=== PATIENT | female | born 1965 | race African-American/Black ===

== ENCOUNTER 2020-04-24 11:02 | Inpatient (IN) ==
[2020-04-24] MEDS ORDERED: SODIUM CHLORIDE 0.9% 1,000 ML IV STA (11:28)
[2020-04-24 11:55] LABS: Basophils % 0.2 % (0.0-0.8); Eosinophils % 0.3 % (0.00-10.9); Hematocrit 40.9 VOL% (35.7-47.0); Hemoglobin 13.7 GM/DL (12.0-16.0); Immature Granulocytes % 0.4 %; Immature Granulocytes Absolute 0.06 #; Lymphocytes # 2.2 10*3/uL (1.4-4.0); Lymphocytes % 16.1 % (21.3-54.2); Mean Corpuscular HGB Conc 33.5 GM/DL (32-36); Mean Corpuscular Volume 86.5 FL (87-102); Mean Platelet Volume 10.1 FL (9.6-12.0); Platelet Count 279 T/CUMM (130-400); Red Blood Count 4.73 MC/CUMM (3.8-5.5); White Blood Count 13.5 T/CUMM (4-12)
[2020-04-24 12:17] LABS: Calcium 9.5 MG/DL (8.5-10.1)
[2020-04-24] MEDS ORDERED: cefTRIAXone 1,000 MG in SODIUM CHLORIDE 0.9% 100 ML IV STA (12:46)
[2020-04-24 12:47] LABS: Ferritin 867.3 ng/ml (8-252)
[2020-04-24] MEDS ORDERED: GLUCAGON 1 MG VIAL IM PRN (15:40)
[2020-04-24] MEDS ORDERED: ACETAMINOPHEN 325 MG TABLET PO PRN (15:40)
[2020-04-24] MEDS ORDERED: ONDANSETRON 4 MG/2 ML VIAL IV PRN (15:40)
[2020-04-24] MEDS ORDERED: DEXTROSE 50% 25 GM/50 ML VIAL IV PRN (15:40)
[2020-04-24] MEDS ORDERED: DEXAMETHASONE 10 MG/1 ML VIAL IV ONE (16:25)
[2020-04-24] MEDS: AZITHROMYCIN INJ 500 MG in SODIUM CHLORIDE 0.9% 250 ML IV SCH (17:00)
[2020-04-24] MEDS: ENOXAPARIN 40 MG/0.4 ML SYRINGE SUBCUT SCH (21:45)
[2020-04-25 06:38] LABS: Basophils % 0.2 % (0.0-0.8); Hematocrit 40.4 VOL% (35.7-47.0); Hemoglobin 13.3 GM/DL (12.0-16.0); Immature Granulocytes % 0.7 %; Immature Granulocytes Absolute 0.04 #; Lymphocytes # 0.9 10*3/uL (1.4-4.0); Lymphocytes % 15.4 % (21.3-54.2); Mean Corpuscular HGB Conc 32.9 GM/DL (32-36); Mean Corpuscular Volume 89.2 FL (87-102); Mean Platelet Volume 10.8 FL (9.6-12.0); Monocytes % 2.6 % (1.7-12.7); Neutrophils % 81.1 % (38.7-73.9); Platelet Count 263 T/CUMM (130-400); Red Blood Count 4.53 MC/CUMM (3.8-5.5); Red Cell Distribution Width 11.9 % (9.3-17.3); White Blood Count 5.8 T/CUMM (4-12)
[2020-04-25 07:02] LABS: Albumin 2.3 G/DL (3.4-5.0); Bilirubin,Total 1.1 MG/DL (0.2-1.0); Calcium 9.7 MG/DL (8.5-10.1); Osmolality,Calculated 284.5 MOS/KG (273-304); Total Protein 8.5 G/DL (6.4-8.3)
[2020-04-25 08:41] LABS: Anisocytosis Slight; Band Neutrophils 6 % (0-10); Lymphocytes 17 % (20-55); Platelet Estimate Normal; Segmented Neutrophils 76 % (50-85); Total Cells Counted 100
[2020-04-25] MEDS: PANTOPRAZOLE 40 MG TABLET PO SCH (09:08)
[2020-04-25] MEDS: DEXAMETHASONE 10 MG/1 ML VIAL IV SCH (09:08)
[2020-04-25] MEDS: AZITHROMYCIN INJ 500 MG in SODIUM CHLORIDE 0.9% 250 ML IV SCH (16:09)
[2020-04-25] MEDS: cefTRIAXone 1,000 MG in SYRINGE 1 EACH IV SCH (16:09)
[2020-04-25] MEDS: ENOXAPARIN 40 MG/0.4 ML SYRINGE SUBCUT SCH (21:31)
[2020-04-26 06:40] LABS: Basophils % 0.1 % (0.0-0.8); Hematocrit 39.2 VOL% (35.7-47.0); Immature Granulocytes Absolute 0.16 #; Lymphocytes # 1.4 10*3/uL (1.4-4.0); Lymphocytes % 8.3 % (21.3-54.2); Mean Corpuscular HGB Conc 33.2 GM/DL (32-36); Mean Corpuscular Volume 87.9 FL (87-102); Mean Platelet Volume 10.7 FL (9.6-12.0); Monocytes % 5.1 % (1.7-12.7); Neutrophils % 85.5 % (38.7-73.9); Platelet Count 356 T/CUMM (130-400); Red Blood Count 4.46 MC/CUMM (3.8-5.5); Red Cell Distribution Width 11.9 % (9.3-17.3); White Blood Count 16.8 T/CUMM (4-12)
[2020-04-26 07:07] LABS: Albumin 2.2 G/DL (3.4-5.0); Bilirubin,Total 0.4 MG/DL (0.2-1.0); Calcium 9.7 MG/DL (8.5-10.1); Osmolality,Calculated 287.3 MOS/KG (273-304)
[2020-04-26] MEDS: DEXAMETHASONE 10 MG/1 ML VIAL IV SCH (08:44)
[2020-04-26] MEDS: PANTOPRAZOLE 40 MG TABLET PO SCH (08:44)
[2020-04-26] MEDS: AZITHROMYCIN 250 MG TABLET PO SCH (08:45)
[2020-04-26] MEDS: cefTRIAXone 1,000 MG in SYRINGE 1 EACH IV SCH (16:20)
[2020-04-26] MEDS: ENOXAPARIN 40 MG/0.4 ML SYRINGE SUBCUT SCH (21:06)
[2020-04-27 06:14] LABS: Basophils % 0.1 % (0.0-0.8); Eosinophils % 0.1 % (0.00-10.9); Hematocrit 37.8 VOL% (35.7-47.0); Hemoglobin 12.5 GM/DL (12.0-16.0); Immature Granulocytes % 0.8 %; Immature Granulocytes Absolute 0.11 #; Lymphocytes # 2.5 10*3/uL (1.4-4.0); Lymphocytes % 18.5 % (21.3-54.2); Mean Corpuscular HGB Conc 33.1 GM/DL (32-36); Mean Corpuscular Volume 87.7 FL (87-102); Mean Platelet Volume 10.2 FL (9.6-12.0); Monocytes % 7.6 % (1.7-12.7); Neutrophils % 72.9 % (38.7-73.9); Platelet Count 382 T/CUMM (130-400); Red Blood Count 4.31 MC/CUMM (3.8-5.5); White Blood Count 13.4 T/CUMM (4-12)
[2020-04-27 06:35] LABS: Calcium 9.2 MG/DL (8.5-10.1)
[2020-04-27] MEDS: PANTOPRAZOLE 40 MG TABLET PO SCH (08:22)
[2020-04-27] MEDS: AZITHROMYCIN 250 MG TABLET PO SCH (08:22)
[2020-04-27] MEDS: DEXAMETHASONE 10 MG/1 ML VIAL IV SCH (08:22)
[2020-04-27] MEDS ORDERED: SODIUM CHLORIDE 0.9% 1,000 ML IV ONE (16:55)
[2020-04-27] MEDS: cefTRIAXone 1,000 MG in SYRINGE 1 EACH IV SCH (19:35)
[2020-04-27] MEDS: ENOXAPARIN 40 MG/0.4 ML SYRINGE SUBCUT SCH (21:41)
[2020-04-28 06:11] LABS: Basophils % 0.2 % (0.0-0.8); Eosinophils # 0.1 10*3/uL (0.0-0.87); Eosinophils % 0.7 % (0.00-10.9); Hematocrit 35.8 VOL% (35.7-47.0); Hemoglobin 11.6 GM/DL (12.0-16.0); Immature Granulocytes % 1.1 %; Immature Granulocytes Absolute 0.14 #; Lymphocytes # 3.1 10*3/uL (1.4-4.0); Lymphocytes % 25.2 % (21.3-54.2); Mean Corpuscular HGB Conc 32.4 GM/DL (32-36); Mean Corpuscular Volume 89.5 FL (87-102); Mean Platelet Volume 9.8 FL (9.6-12.0); Monocytes % 10.6 % (1.7-12.7); NRBC # 0.02 10*3/uL; Neutrophils % 62.2 % (38.7-73.9); Platelet Count 366 T/CUMM (130-400); Red Cell Distribution Width 12.2 % (9.3-17.3); White Blood Count 12.2 T/CUMM (4-12)
[2020-04-28 06:21] LABS: Calcium 8.9 MG/DL (8.5-10.1); Osmolality,Calculated 280.3 MOS/KG (273-304)
[2020-04-28] MEDS ORDERED: HYDROXYCHLOROQUINE 200 MG TABLET PO SCH (09:00)
[2020-04-28] MEDS: AZITHROMYCIN 250 MG TABLET PO SCH (09:09)
[2020-04-28] MEDS: PANTOPRAZOLE 40 MG TABLET PO SCH (09:10)
[2020-04-28] MEDS: DEXAMETHASONE 10 MG/1 ML VIAL IV SCH (09:10)
[2020-04-28] MEDS ORDERED: MAGNESIUM SULF RIDER 4 GM in PREMIX 1 EACH IV PRN (10:47)
[2020-04-28] MEDS ORDERED: MAGNESIUM SULF RIDER 2 GM in PREMIX 1 EACH IV PRN (10:47)
[2020-04-28 12:21] VITALS: BP 114/76
== END 2020-04-28 15:04 | disposition home or self-care (01) | DRG 177 ==
LOC: N.ED 11:02 → N.EDINP 15:40 → SUATTDRO 15:40 → N.EDINP 18:55 → N.5E 19:05
PROVIDERS: ADMIT Emergency Medicine; ATTEND Internal Medicine